=== PATIENT | male | born 1965 | race Two or more races ===

== ENCOUNTER 2021-01-11 06:05 | Day surgery (SDC) | payer OTHER | END 2021-01-11 11:20 | disposition home or self-care (01) | LOC: AMB-ENDOS 06:05 | PROVIDERS: ATTEND Colon & Rectal Surgery | DX: K62.4 Stenosis of anus and rectum (principal) ==

== ENCOUNTER 2021-12-12 08:44 | Inpatient (IN) | payer OTHER ==
[~2021-12-12] VITALS: Ht 170.2 cm; Wt 68.0 kg
[2021-12-12] MEDS ORDERED: BUPROPION HCL75 MG PO (11:54)
[2021-12-12] MEDS ORDERED: CLONAZEPAM2 M1 PO (11:54)
[2021-12-12] MEDS ORDERED: SULFASALAZINE500 M1 PO (11:55)
[2021-12-12] MEDS ORDERED: LOPERAMIDE2 M1 PO (11:55)
[2021-12-12] MEDS ORDERED: SEROQUEL50 MG PO (11:56)
[2021-12-12] MEDS ORDERED: CLINDAMYCIN HC150 MG PO (11:57)
[2021-12-12] MEDS ORDERED: SILDENAFIL CIT100 MG PO (11:57)
[2021-12-18] MEDS ORDERED: VALACYCLOVIR1000 MG (13:23)
[2021-12-18] MEDS ORDERED: BUSPIRONE HCL15 MG (13:23)
[2021-12-18] MEDS ORDERED: BUPROPION HCL200 MG (13:23)
[2021-12-18] MEDS ORDERED: TAMSULOSIN HCL0.4 MG (13:23)
== END 2021-12-20 12:45 | disposition home or self-care (01) | DRG 331 ==
LOC: SURG 12-18 07:10 → O/R 12-18 07:10 → SURG 12-18 11:30
PROVIDERS: ADMIT Colon & Rectal Surgery; ATTEND Colon & Rectal Surgery
PROC: 0D1B4Z4 Bypass Ileum to Cutaneous, Percutaneous Endoscopic Approach (ICD-10-PCS; principal; 2021-12-18 11:30)
DX: C20 Malignant neoplasm of rectum (principal); D13.30 Benign neoplasm of unspecified part of small intestine; Z93.2 Ileostomy status; K66.0 Peritoneal adhesions (postprocedural) (postinfection); Z20.822 Contact with and (suspected) exposure to COVID-19; Z86.010 Personal history of colon polyps

== ENCOUNTER 2022-03-20 09:39 | Inpatient (IN) | payer OTHER ==
[~2022-03-20] VITALS: Ht 170.2 cm; Wt 0.5 kg
[~2022-03-20 09:39] MED LIST: BUPROPION HCL200 MG; BUPROPION HCL75 MG PO; BUSPIRONE HCL15 MG; CLINDAMYCIN HC150 MG PO; CLONAZEPAM2 M1 PO; LOPERAMIDE2 M1 PO; SEROQUEL50 MG PO; SILDENAFIL CIT100 MG PO; SULFASALAZINE500 M1 PO; TAMSULOSIN HCL0.4 MG; VALACYCLOVIR1000 MG
[2022-03-24] MEDS ORDERED: GABAPENTIN100 M2 (10:28)
== END 2022-03-31 15:34 | disposition home or self-care (01) | DRG 394 ==
LOC: ER 09:39 → SEC-K 14:57 → SURH 14:57 → SURG 03-21 15:16
PROVIDERS: ADMIT Colon & Rectal Surgery; ATTEND Colon & Rectal Surgery
PROC: 02HV33Z Insertion of Infusion Device into Superior Vena Cava, Percutaneous Approach (ICD-10-PCS; 2022-03-22)
PROC: BW21ZZZ Computerized Tomography (CT Scan) of Abdomen and Pelvis (ICD-10-PCS; principal; 2022-03-27)
DX: K63.2 Fistula of intestine (principal); C20 Malignant neoplasm of rectum; H54.10 Blindness, one eye, low vision other eye, unspecified eyes; B00.9 Herpesviral infection, unspecified; Z20.822 Contact with and (suspected) exposure to COVID-19; F32.9 Major depressive disorder, single episode, unspecified

== ENCOUNTER 2022-05-19 09:53 | Inpatient (IN) | payer OTHER ==
[~2022-05-19] VITALS: Ht 170.2 cm; Wt 59.0 kg
[~2022-05-19 09:53] MED LIST changes: +GABAPENTIN100 M2
== END 2022-05-21 14:43 | disposition home or self-care (01) | DRG 394 ==
LOC: ER 09:53 → SURH 05-20 08:06 → SEC-K 05-20 08:06 → SURH 05-20 09:42
PROVIDERS: ADMIT Colon & Rectal Surgery; ATTEND Colon & Rectal Surgery
DX: K63.2 Fistula of intestine (principal); C20 Malignant neoplasm of rectum; Z85.048 Personal history of other malignant neoplasm of rectum, rectosigmoid junction, and anus; Z20.822 Contact with and (suspected) exposure to COVID-19; K62.4 Stenosis of anus and rectum; Z86.010 Personal history of colon polyps

== ENCOUNTER 2022-06-25 07:22 | Day surgery (SDC) | payer OTHER ==
[~2022-06-25 07:22] MED LIST changes: +BUPROP PO; +VALTREX PO; +VALTREX1000 MG PO; +[UNRECOGNIZED DRUG - OTHER] PO
[2022-06-25] MEDS ORDERED: CLONAZEPAM1 MG PO (19:11)
[2022-06-25] MEDS ORDERED: LEVOFLOXACIN500 MG PO (19:11)
[2022-06-26] MEDS ORDERED: FLAGYL375 MG PO (06:19)
== END 2022-06-25 15:55 | disposition home or self-care (01) ==
LOC: CIR.AMB 07:22
PROVIDERS: ATTEND Colon & Rectal Surgery
DX: L92.8 Other granulomatous disorders of the skin and subcutaneous tissue (principal); C20 Malignant neoplasm of rectum; Z86.010 Personal history of colon polyps; Z20.822 Contact with and (suspected) exposure to COVID-19; Z88.2 Allergy status to sulfonamides; Z88.1 Allergy status to other antibiotic agents

== ENCOUNTER 2022-06-25 18:56 | Emergency (ER) | payer OTHER ==
[~2022-06-25] VITALS: Ht 170.2 cm; Wt 59.0 kg
[2022-06-25] MEDS ORDERED: LEVOFLOXACIN500 MG PO (19:11)
[2022-06-25] MEDS ORDERED: CLONAZEPAM1 MG PO (19:11)
[2022-06-26] MEDS ORDERED: FLAGYL375 MG PO (06:19)
== END 2022-06-25 21:22 | disposition home or self-care (01) ==
LOC: ER 18:56
DX: N99.89 Other postprocedural complications and disorders of genitourinary system (principal); N40.1 Benign prostatic hyperplasia with lower urinary tract symptoms; R33.8 Other retention of urine; Z85.038 Personal history of other malignant neoplasm of large intestine; Z93.2 Ileostomy status; Z88.2 Allergy status to sulfonamides

== ENCOUNTER 2022-06-26 06:06 | Emergency (ER) | payer OTHER ==
[~2022-06-26] VITALS: Ht 170.2 cm; Wt 59.0 kg
[~2022-06-26 06:06] MED LIST changes: +CLONAZEPAM1 MG PO; +LEVOFLOXACIN500 MG PO
[2022-06-26] MEDS ORDERED: FLAGYL375 MG PO (06:19)
== END 2022-06-26 09:52 | disposition home or self-care (01) ==
LOC: ER 06:06
DX: R33.8 Other retention of urine (principal); Z88.2 Allergy status to sulfonamides; Z85.038 Personal history of other malignant neoplasm of large intestine; Z93.3 Colostomy status